=== PATIENT | female | born 1980 | race Caucasian/White ===

== ENCOUNTER 2016-10-04 13:31 | Inpatient (IN) | payer BC ==
[~2016-10-04] VITALS: Ht 170.2 cm; Wt 81.8 kg
[~2016-10-04 13:31] MED LIST: PRENATAL VITAMI1 TA5 PO
[2016-10-22] VITALS (33 sets, daily range): BP systolic 91–133; BP diastolic 46–75; PULSE 57–95; TEMP 98–98.1
[2016-10-22 14:26] LABS: BASO % 0.4 % (0.0-2.0); EOS # 0.1 (0.0-0.7); GRAN # 8.5 (1.4-6.5); HEMOGLOBIN 12.3 g/dl (12.5-16.0); LYMPH # 1.7 (1.2-3.4); LYMPH % 15.1 % (20.0-51.0); MEAN CELL VOLUME 88 fl (80.0-100.0); MEAN CORPUSCULAR HEMOGLOBIN 30 pg (27.0-31.0); MEAN CORPUSCULAR HGB CONC 35 g/dl (33.0-37.0); MEAN PLATELET VOLUME 11.5 fl (7.4-10.4); MONO # 0.6 (0.1-0.6); MONO % 5.2 % (1.7-9.3); PLATELET COUNT 178 K/mm3 (130-400); RED BLOOD COUNT 4.04 M/mm3 (4.10-5.30); REDCELL DISTRIBUTION WIDTH-CV 12.6 % (11.5-14.5); WHITE BLOOD COUNT 10.9 K/mm3 (4.8-10.8)
[2016-10-22 14:30] LABS: HEMATOCRIT 35.6 % (37.0-47.0)
[2016-10-23 00:15] VITALS: BP 108/56; PULSE 58
[2016-10-23 00:45] VITALS: BP 103/52; PULSE 58
[2016-10-23 01:15] VITALS: BP 119/57; PULSE 63
[2016-10-23 07:30] VITALS: BP 104/57; PULSE 63; TEMP 97.5
[2016-10-23] MEDS ORDERED: IBU600 MG PO (12:15)
[2016-10-23] MEDS ORDERED: PERCOCET 325 MG1 TA2 PO (12:16)
[2016-10-23 19:15] VITALS: BP 100/64; PULSE 59; TEMP 98.7
[2016-10-24 08:00] VITALS: BP 115/66; PULSE 64; TEMP 98.2
== END 2016-10-24 12:00 | disposition home or self-care (01) | DRG 775 ==
LOC: EDSTATUS 13:31 → LDRO 14:10 → OB 10-22 13:32 → LDR 10-22 13:35 → OB 10-23 04:45
PROVIDERS: Obstetrics & Gynecology
PROC: 10E0XZZ Delivery of Products of Conception, External Approach (ICD-10-PCS; principal; 2016-10-22)
DX: O36.0130 Maternal care for anti-D [Rh] antibodies, third trimester, not applicable or unspecified (principal); Z3A.37 37 weeks gestation of pregnancy; Z37.0 Single live birth
CPT/HCPCS: J1200; J2405; J2590; J2795; J7120